=== PATIENT | male | born 1995 | race Two or more races ===

== ENCOUNTER 2025-01-20 17:52 | Emergency (ER) | payer OTHER, SELFPAY ==
--- NOTE | 2025-01-20 18:01 | PC.NURSE ---
Called Dr. Brizuela to evaluate patient for possible stroke, per dr. Brizuela not a stroke alert at this time.
[2025-01-20 18:02] VITALS: BP 161/106; PULSE 99; RESP 16; TEMP 37.6; O2SAT 99; BMI 29.0
--- NOTE | 2025-01-20 18:26 | EKG_ITS ---
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
--- NOTE | 2025-01-20 18:53 | XR_ITS ---
EXAMINATION: PA chest single view TECHNIQUE: Upright PA chest single view Date and time: January 20, 2025, 1907 hours INDICATIONS: Shortness of breath today. FINDINGS: Normal heart size Lungs are clear. The osseous structures are intact IMPRESSION: No active disease
--- NOTE | 2025-01-20 18:53 | XR_ITS ---
Examination: CT brain head without contrast. 2-D sagittal coronal reconstructions Date and time of exam: January 20, 2025, 1904 hours INDICATIONS: Dizziness shortness of breath paresthesias today CTDI: vol (mGy): 55.4 DLP: (mGycm): 1135 Technique: Multiple CT axial sections of the brain have been obtained, 5 mm slice thickness. Contrast has not been administered. 2-D sagittal, coronal reconstructions have been obtained Low dose protocols were performed. One or more of the following dose reduction techniques were used; automated exposure control, adjustment of the mA and/or KV according to patient size, use of iterative reconstruction technique. Findings: No significant ventricular enlargement. Probable encephalomalacia right temporal lobe, axial image 31, but clinical correlation advised Intra-axial or extra-axial hemorrhage density is not seen. No mass effect or midline shift Basal cisterns are not remarkable. Fourth ventricle is midline. Cranial vault intact. Impression: Negative for acute hemorrhage, mass effect or midline shift Probable encephalomalacia right temporal lobe, but clinical correlation advised If acute right temporal lobe infarct is a clinical consideration, suggest brain MRI follow-up
--- NOTE | 2025-01-20 18:53 | EDRME_ITS ---
Rapid Medical Screening Exam [facility] Arrival date/time: 01/20/25 17:52 29M with no significant PMH presents to ED with 1 day (starting around 3 AM today) of intermittent dizziness and LUE numbness/paresthesia. Patient recently had some URI symptoms and tested negative for COVID at home. Patient denies recent travel, any pain (including CP and neck), as well as SOB, leg swelling, anxiety/drug use and current URI symptoms. No recent chiropractor manipulations. Chief Complaint: Dizziness Vital signs: Vital Signs Temperature 99.7 F 01/20/25 18:02 Pulse Rate 99 01/20/25 18:02 Respiratory Rate 16 01/20/25 18:02 Blood Pressure 161/106 H 01/20/25 18:02 Pulse Oximetry (%) 99 01/20/25 18:02 Oxygen Delivery Method Room Air 01/20/25 18:02 Exam: CN II-XII grossly intact. Neg pronator drift test. Gait and speech normal. Normal WOB. Calm. Clinical Impression: anxiety vs PE/DVT vs brain bleed vs CVA/TIA vs dizziness vs paresthesia vs ACS vs PNA vs URI
[2025-01-20 19:14] LABS: Basophils # (Auto) 0.0 Thou/mm3 (0.0-0.2); Basophils % (Auto) 0 % (0-2.5); Eosinophils # (Auto) 0.1 Thou/mm3 (0.0-0.5); Eosinophils % (Auto) 1 % (0-10); Hematocrit 44.3 % (41.0-53.0); Hemoglobin 15.4 g/dL (13.5-16.0); Immature Granulocytes Auto 0.03 Thou/mm3 (0.00-0.00); Lymphocytes # (Auto) 2.1 Thou/mm3 (1.0-4.8); Lymphocytes % (Auto) 28 % (10-50); Mean Corpuscular HGB Conc 34.8 g/dl (31.0-37.0); Mean Corpuscular Hemoglobin 30.4 pg (25.0-35.0); Mean Corpuscular Volume 88 fL (80-100); Monocytes # (Auto) 0.4 Thou/mm3 (0.0-0.8); Monocytes % (Auto) 6 % (0-12); Neutrophils # (Auto) 4.9 Thou/mm3 (1.8-7.7); Neutrophils % (Auto) 65 % (37-80); Nucleated Red Blood Cell # 0.00 Thou/mm3 (0.00-0.00); Nucleated Red Blood Cell % 0 /100 WBC (0); Platelet Count 233 Thou/mm3 (140-440); RDW Standard Deviation 36.8 fL (35.1-43.9); Red Blood Count 5.06 Miln/mm3 (4.50-5.90); White Blood Count 7.6 Thou/mm3 (3.8-10.6)
[2025-01-20 19:43] LABS: Alanine Aminotransferase 70 U/L (10-49); Albumin, Serum 5.4 gm/dL (3.5-5.0); Albumin/Globulin Ratio 2.2 (1.2-2.2); Alkaline Phosphatase 60 U/L (46-116); Anion Gap 10 (7-16); Aspartate Amino Transferase 33 U/L (0-34); BUN/Creatinine Ratio 11 Ratio (12-20); Bilirubin,Total 0.8 mg/dL (0.3-1.2); Blood Urea Nitrogen 11 mg/dL (9-23); Calcium 10.2 mg/dL (8.3-10.6); Calcium (Corrected) 10.2 mg/dL (8.5-10.1); Carbon Dioxide 27.7 mMol/L (20.0-31.0); Chloride 104 mMol/L (98-107); Creatinine (Component) 1.0 mg/dL (0.6-1.3); Estimated Creatinine Clearance 111.0 mL/min (>60); Globulin 2.5 gm/dL (2.3-3.5); Glucose 93 mg/dL (74-106); Osmolality,Calculated 282 (275-295); Potassium 4.6 mMol/L (3.4-5.1); Sodium 142 mMol/L (136-145); Total Protein 7.9 gm/dL (5.7-8.2); Troponin I < 0.002 ng/mL (0.0-0.045); eGFR > 60 See Note
--- NOTE | 2025-01-20 19:44 | PD.EDDIZZY ---
ED Dizzyness RME/HPI General Chief Complaint: Dizziness Stated Complaint: LEFT ARM NUMBNESS AND DIZZINESS, OFF BALANCE Arrival date/time: 01/20/25 17:52 RME / HPI RME / HPI Narrative: 01/20/25 17:52 29M with no significant PMH presents to ED with 1 day (starting around 3 AM today) of intermittent dizziness and LUE numbness/paresthesia. Patient recently had some URI symptoms and tested negative for COVID at home. Patient denies recent travel, any pain (including CP and neck), as well as SOB, leg swelling, anxiety/drug use and current URI symptoms. No recent chiropractor manipulations. Dr. Ruffin?s Main ED Evaluation: 29yo male with palpitations that woke him up at 0300 with associated lightheadedness, dizziness, and near syncope. Patient was able to get back to sleep and slept for the remainder of the evening. When he woke up this morning, patient continued to have intermittent palpitations throughout the day as well as LUE paresthesias. No focal weakness, visual/gait disturbances. PMH/PSH unremarkable. Occasional alcohol use, but no tobacco or illicit drug use. Related Data Previous Rx's ?Medication ?Instructions ?Recorded aspirin 81 mg tablet,delayed 81 mg PO QDAY #30 tabs 01/20/25 release (Ecotrin Low Strength) Allergies Allergy/AdvReac Type Severity Reaction Status Date / Time No Known Allergies Allergy Verified 01/20/25 20:26 Review of Systems Review of Systems Systems Reviewed: All systems reviewed, normal except as documented Past Medical History Social History SMOKING STATUS: Never smoker ED Exam Narrative Physical exam: GENERAL APPEARANCE: alert and oriented x 4, well-developed, well-nourished, appears apprehensive/anxious, no acute distress VITALS: All vitals were reviewed and the pulse ox is 99% on room air, which is normal according to my interpretation. HEENT: Normocephalic, atraumatic; pupils equal, round, reactive to light; EOMI; mucous membranes pink, moist; oropharynx clear NECK: Supple LUNGS: CTABL; no wheezes, no rales, no rhonchi HEART: Tachycardic, regular rhythm; normal S1, S2; no murmurs ABDOMEN: non distended; normal BS; soft, no tenderness, no guarding, no rebound; no masses, no organomegaly, no hernia BACK: no CVA tenderness EXTREMITIES: atraumatic; no edema NEUROLOGIC: awake; alert and oriented x4; cranial nerves II-XII grossly intact; no focal sensory or motor deficits PSYCHIATRIC: apprehensive mood and affect SKIN: warm, dry, normal color; no rashes Course Quality Measures none Orders Category Date Time Status Blood glucose [Bedside Blood Glucose] NOW Care 01/20/25 18:30 Active EKG (ED ONLY) *Do not use* NOW Care 01/20/25 18:[address] head/brain wo con Stat Exams 01/20/25 18:53 Completed EKG (ED Only) Stat Exams 01/20/25 18:26 Draft XR chest 1V portable Stat Exams 01/20/25 18:53 Completed CBC Stat Lab 01/20/25 18:59 Completed Comprehensive Metabolic Panel Stat Lab 01/20/25 18:59 Completed Drug Screen,Urine Stat Lab 01/20/25 20:16 Completed Magnesium Stat Lab 01/20/25 18:59 Completed Thyroid Stimulating Hormone Stat Lab 01/20/25 18:59 Completed Troponin I Stat Lab 01/20/25 18:59 Completed Midazolam Inj [Versed Inj] Med 01/20/25 19:54 Discontinued 2 mg IVP X1 ONE Sodium Chloride 0.9% 1000 ml [Ns] 1,000 ml Med 01/20/25 19:54 Discontinued IV 999 mls/hr Vital Signs Vital signs: Vital Signs Temperature 99.7 F 01/20/25 18:02 Pulse Rate 99 01/20/25 18:02 Respiratory Rate 16 01/20/25 18:02 Blood Pressure 161/106 H 01/20/25 18:02 Pulse Oximetry (%) 99 01/20/25 18:02 Oxygen Delivery Method Room Air 01/20/25 18:02 Dizziness MDM Narrative MDM Narrative:: Scribe Attestation: 01/20/25 Rayna Reich am scribing for and in the presence of Dr. Ruffin. 29yo male with palpitations that woke him up at 0300 with associated lightheadedness, dizziness, and near syncope. Patient was able to get back to sleep and slept for the remainder of the evening. Please see PE findings. Lab markers demonstrate CBC, chemistries, thyroid function, and tox screen are unremarkable. EKG without signs of accessory pathway, ischemia, infarction, or pericarditis. Patient was placed on monitor car operator, basic cardiac work-up, and CT head obtained which demonstrated encephalomalacia in the right parietal lobe. Patient was treated with IV fluids and low dose benzodiazepines with normalization of vital signs. On serial evaluation, patient's symptoms have resolved. After extended period of observation, considered stable for discharge. Patient will need outpatient holter monitor, ECHO, and neurological evaluation. Of note, no history of seizure disorder or previous neurological event. Will consider low dose aspirin pending neurological evaluation. Patient data External records reviewed:: [facility] previous records (Per chart review, patient has no previous ED visits or admissions to this facility.) Clinical information provided by:: patient Social determinants that could affect healthcare access:: none Patient has the following chronic illnesses:: none How is presenting disease/condition affected by chronic disease/condition?: no chronic disease Evaluation data The following diagnostics were reviewed and interpreted by me:: lab results, radiology exam(s) and EKG tracing(s) Lab and/or radiology exams considered but not ordered:: none Interpretation Summary: EKG done at 1831, sinus rhythm, rate of 84, no acute pathological ST segment changes, no ectopy, normal intervals, left axis deviation, no signs of accessory pathway, [place], or prolonged QT interval, according to my interpretation. [place] [facility] Report Signed Patient: MAGNO VERDUZCO Record#: [id number] Birthdate: 1995 Age/Sex: 29 / M Location: [facility] Attending Dr: Ordering Physician: Deven Zarate PA-C Date of Service: 01/20/25 Procedure(s): XR chest 1V portable Accession Number(s): [id number] cc: Blaise Plata MD; NO PRIMARY/FAMILY,PHYSICIAN; Deven Zarate PA-C~ EXAMINATION: PA chest single view TECHNIQUE: Upright PA chest single view Date and time: January 20, 2025, 1907 hours INDICATIONS: Shortness of breath today. FINDINGS: Normal heart size Lungs are clear. The osseous structures are intact IMPRESSION: No active disease Dictated By: Blaise Plata MD Signed By: <Electronically signed by Blaise Plata MD in [place]> 01/20/251913 [facility] Report Signed Patient: MAGNO VERDUZCO Record# [id number] Birthdate: 1995 Age/Sex: 29 / M Location: [facility] Attending Dr: Ordering Physician: Deven Zarate PA-C Date of Service: 01/20/25 Procedure(s): CT head/brain wo con Accession Number(s): [id number] cc: Blaise Plata MD; NO PRIMARY/FAMILY,PHYSICIAN; Deven Zarate PA-C~ Examination: CT brain head without contrast. 2-D sagittal coronal reconstructions Date and time of exam: January 20, 2025, 1904 hours INDICATIONS: Dizziness shortness of breath paresthesias today CTDI: vol (mGy): 55.4 DLP: (mGycm): 1135 Technique: Multiple CT axial sections of the brain have been obtained, 5 mm slice thickness. Contrast has not been administered. 2-D sagittal, coronal reconstructions have been obtained Low dose protocols were performed. One or more of the following dose reduction techniques were used; automated exposure control, adjustment of the mA and/or KV according to patient size, use of iterative reconstruction technique. Findings: No significant ventricular enlargement. Probable encephalomalacia right temporal lobe, axial image 31, but clinical correlation advised Intra-axial or extra-axial hemorrhage density is not seen. No mass effect or midline shift Basal cisterns are not remarkable. Fourth ventricle is midline. Cranial vault intact. Impression: Negative for acute hemorrhage, mass effect or midline shift Probable encephalomalacia right temporal lobe, but clinical correlation advised If acute right temporal lobe infarct is a clinical consideration, suggest brain MRI follow-up Dictated By: Blaise Plata MD Signed By: <Electronically signed by Blaise Plata MD in [place]> 01/20/251915 Medications / Prescriptions Medications or Prescriptions considered but not ordered:: none Medication administrations:: Medication Administration History Discontinued Medications Sodium Chloride (Ns) 1,000 mls @ 999 mls/hr IV .Q1H1M ONE Stop: 01/20/25 20:54 Last Infusion: 01/20/25 21:59 Dose: Infused Documented By: Admin: 01/20/25 20:11 Dose: 999 mls/hr Documented By: AM Midazolam HCl (Midazolam Inj 1 Mg/Ml Vial 2 Ml) 2 mg IVP X1 ONE Stop: 01/20/25 19:55 Last Admin: 01/20/25 21:02 Dose: 2 mg Documented By: CB see above Consultations Consultation(s) initiated? (list below): No Diagnosis Dizziness Differential Diagnosis: other (palpitations 2/2 electrolyte disturbance, anemia, accessory pathway) Most likely diagnosis given after review of the tests above:: see clinical impression below Admission Indicated Admission indicated?: not indicated Admission Request Was there a request for admission?: No Disposition Plan Disposition Plan: Discharge Discharge Attestation Discharge Attestation: The patient and all family members were given an opportunity to ask questions and understood the discharge instructions. Discharge instructions specifically effects, indications for sooner follow up or return to the emergency department, and the expected course of current diagnosis. Patient condition: Stable Discharge Plan Plan Patient Disposition: HOME (Self Care) Discharge Disposition comment: Stable Prescriptions/Referrals Prescriptions/Med Rec: New aspirin [Ecotrin Low Strength] 81 mg tablet,delayed release (DR/EC) 81 mg PO QDAY Qty: 30 0RF Referrals: No Primary/Family,Physician [Primary Care Provider] - In 1 week Problem List Clinical Impression: Palpitations, Encephalomalacia on imaging study Patient/Caregiver Discharge Instructions Discharge Activity: activity as tolerated Diet Instructions: Low-salt Education Materials: Understanding Heart Palpitations, ED Palpitations Additional Instructions: Begin daily aspirin. Follow-up with hot metal car operator for outpatient Holter/echocardiography. In addition referral to neurology given CT findings as he will likely require further workup possibly including an MRI. Return if worsening Print Language: [place] Stand Alone Forms: Gracie Award Info., Patient Portal Info Letter
[2025-01-20 19:45] VITALS: BP 139/81; PULSE 99; RESP 19; TEMP 36.8; O2SAT 99
[2025-01-20] MEDS: SODIUM CHLORIDE 0.9% 1000 ML 1,000 ML 999 ML IV (20:11)
[2025-01-20 20:25] LABS: Magnesium 1.8 mg/dL (1.6-2.6); Thyroid Stimulating Hormone 0.91 uIU/mL (0.55-4.78)
[2025-01-20 20:31] LABS: Amphetamine/Methamp Scrn,U Negative (Negative); Barbiturate Screen,Urine Negative (Negative); Benzodiazepines Screen,Urine Negative (Negative); Benzoylecgonine Screen, Ur Negative (Negative); Fentanyl Screen,Urine Negative (Negative); Opiate Screen,Urine Negative (Negative); THC Screen,Urine Negative (Negative)
[2025-01-20] MEDS: MIDAZOLAM INJ 1 MG/ML VIAL 2 ML 2 MG IVP (21:02)
[2025-01-20 22:48] VITALS: BP 153/94; PULSE 89; RESP 20; TEMP 36.7; O2SAT 95
== END 2025-01-20 22:50 | disposition home or self-care (01) ==
PROVIDERS: Physician Assistant; Emergency Provider Emergency Medicine
DX: R00.2 Palpitations (principal); G93.89 Other specified disorders of brain
CPT/HCPCS: 36415; 70450; 71045; 80053; 80307; 83735; 84443; 84484; 85025; 93005; 96361; 96374; 99284; J2250; J7030